=== PATIENT | male | born 1975 | race Caucasian/White ===

== ENCOUNTER 2020-04-23 19:52 | Emergency (ER) | payer OTHER, MEDICAID, SELFPAY ==
[2020-04-23] VITALS (7 sets, daily range): BP systolic 125–158; BP diastolic 78–80; PULSE 89–103; RESP 15–16; TEMP 36.7; O2SAT 91–98; BMI 28.8
--- NOTE | 2020-04-23 20:17 | ED.NAVMDI ---
HPI - Nausea/Vomiting/Diarrhea General Chief complaint: Nausea/Vomiting/Diarrhea Stated complaint: thinks took too many pills - percocet Time Seen by Provider: 04/23/20 20:01 Source: patient Mode of arrival: Wheelchair Limitations: no limitations History of Present Illness HPI Narrative: Patient is a 44-year-old male who 2 days ago underwent a dental procedure where he had 16 if his teeth removed. He is currently on Percocet and has taken 1 tablet every 2 hours. He has not had a bowel movement since the procedure. He states that he is still tolerating oral intake. He is feeling somewhat nauseous. No abdominal pain. Generally just does not feel very good is concerned that maybe he has taken too many of the pain medication. He does not have any nausea medicine at home. Related Data Home Medications Medication Instructions Recorded Confirmed No Known Home Medications 09/20/18 09/20/18 Allergies Allergy/AdvReac Type Severity Reaction Status Date / Time No Known Drug Allergies Allergy Verified 04/23/20 20:03 Review of Systems Constitutional Constitutional: Reports fatigue, Denies fever(s), Denies headache(s) and Reports malaise ENT Ears, Nose, Mouth, and Throat: Denies headache(s) Cardiovascular Cardiovascular: Denies chest pain and Denies dyspnea Respiratory Respiratory: Denies dyspnea Gastrointestinal Gastrointestinal: Denies abdominal pain and Reports nausea Genitourinary Genitourinary: Denies dysuria Genitourinary: Denies dysuria Musculoskeletal Musculoskeletal: Denies arthralgias and Denies myalgias Integumentary/Breasts Skin/Breast: Denies rash Neurologic Neurologic: Denies confusion and Denies headache(s) Psychiatric Psychiatric: Denies confusion Endocrine Endocrine: Reports fatigue Hematologic/Lymphatic On Anticoagulants: No Allergic/Immunologic Allergic/Immunologic: Denies urticaria Patient History Surgical History Hx of sinus surgery Family History Mother Hypertension Diabetes mellitus Stroke Grandmother Heart disease Gallstones Diabetes mellitus Hypertension Father Hypertension Diabetes mellitus Social History household members: family Smoking Status: Current every day smoker alcohol intake: never substance use type: does not use Smoking Status: Current every day smoker alcohol intake frequency: holidays/special occasions only Substance Use Type: does not use Exam Initial Vital Signs Initial Vital Signs: Vital Signs Temperature 98.0 F 04/23/20 19:55 Pulse Rate 103 H 04/23/20 19:55 Respiratory Rate 15 04/23/20 19:55 Blood Pressure 158/78 H 04/23/20 19:55 Pulse Oximetry 97 04/23/20 19:55 Const General: cooperative and comfortable Limitations: mental status not altered HENMT Head: normal to inspection and normocephalic Mouth: other (Extraction sites look well) Resp Effort & Inspection: normal respiratory effort Cardio Rate: tachycardic Rhythm: regular rhythm GI Inspection: non-distended Skin Lesions: no lesions Rashes: no rashes Neuro General: patient alert, patient awake and patient oriented x3 Cognition: normal cognition Speech: speech normal Extrem General: capillary refill normal Psych Appearance: grossly normal and well kempt Course Orders Ordered: Discontinued Medications Al Hydrox/Mg Hydrox/Simethicone 20 ml/ Lidocaine HCl 15 ml 0 ml PO NOW ONE Stop: 04/23/20 22:16 Last Admin: 04/23/20 22:19 Dose: 35 ml Documented by: PEDRO Sodium Chloride (Normal Saline 0.9%) 1,000 mls @ 1,000 mls/hr IV BOLUS ONE Stop: 04/23/20 21:31 Last Infusion: 04/23/20 22:05 Dose: 0 mls/hr Documented by: Admin: 04/23/20 21:00 Dose: 1,000 mls/hr Documented by: PEDRO Ondansetron HCl (Ondansetron 4 Mg/2 Ml Inj) 4 mg IV NOW ONE Stop: 04/23/20 20:33 Last Admin: 04/23/20 21:00 Dose: 4 mg Documented by: PEDRO Ondansetron HCl (Ondansetron 4 Mg Odt Prepack) 1 bottle MISC SEEINSTR ONE Stop: 04/23/20 22:02 Last Admin: 04/23/20 22:09 Dose: 1 bottle Documented by: PEDRO Vital Signs Vital signs: Vital Signs - 8 hr 04/23/20 19:55 04/23/20 20:30 04/23/20 21:00 Temperature 98.0 F Pulse Rate 103 H 95 H 90 Respiratory Rate 15 Blood Pressure 158/78 H Pulse Oximetry 97 98 91 04/23/20 21:30 04/23/20 22:00 04/23/20 22:06 Temperature Pulse Rate 90 89 Respiratory Rate Blood Pressure 125/80 Pulse Oximetry 96 92 96 04/23/20 22:11 Temperature Pulse Rate Respiratory Rate 16 Blood Pressure Pulse Oximetry MDM - Nausea/Vomiting/Diarrhea MDM Narrative Medical decision making narrative: Patient looks well, is presentation is not consistent with a overdose of his opioid pain medication. He is on antibiotics after the dental extractions and this could potentially be causing some of his symptoms. He was given nausea medication. Is able to tolerate oral intake. Was given fluids. We also discussed the use of stool softeners because of the pain medicines he is on. I feel that he could be safely discharged home without further workup in the emergency department he was given return precautions. He expressed understanding and agreement. Discharge Plan Departure Patient Disposition: Home Clinical Impression: Nausea and vomiting Instructions: DI for Nausea -- Adult, DI for Vomiting -- Adult Activity Restrictions/Additional Instructions: Continues to take all of your medications as directed. I do recommend that you start taking a stool softener because of the pain medicine that you are on. Use the nausea medication as needed. Keep all of your scheduled medical appointments. Return to the emergency department for any new or worsening symptoms. Prescriptions: No Action No Known Home Medications RF: 0
[2020-04-23] MEDS: ONDANSETRON 4 MG/2 ML INJ IV (21:00)
[2020-04-23] MEDS: SODIUM CHLORIDE 0.9% 1,000 ML 1000 ML IV (21:00)
[2020-04-23] MEDS: ONDANSETRON 4 MG ODT PREPACK 1 BOTTLE MISC (22:09)
[2020-04-23] MEDS: MAG HYDROX/ALUMINUM/SIMETH SUS 20 ML, LIDOCAINE VISCOUS 2% 15 ML PO (22:19)
== END 2020-04-23 22:30 | disposition home or self-care (01) ==
PROVIDERS: Emergency Provider Emergency Medicine
DX: R11.2 Nausea with vomiting, unspecified (principal)
CPT/HCPCS: 96361; 96374; 99281; 99284; J2405

== ENCOUNTER 2021-03-14 15:16 | Emergency (ER) | payer OTHER, SELFPAY ==
[2021-03-14 15:51] VITALS: BP 128/78; PULSE 91; RESP 18; TEMP 36.6; O2SAT 95; BMI 31.4
--- NOTE | 2021-03-14 15:59 | DI.RAD.S_ITS ---
PROCEDURE: XR ELBOW LT MIN 3V INDICATIONS: LEFT PAIN AFTER A FALL TECHNIQUE: 3 views of the elbow were acquired. COMPARISON: None. FINDINGS: Bones: No fractures or dislocations. No suspicious bony lesions. Soft tissues: No elbow joint effusion. No suspicious soft tissue calcifications. IMPRESSION: Unremarkable left elbow radiographs Approved by: Fan oDan M.D. on 03/14/2021 at 15:29
--- NOTE | 2021-03-14 15:59 | DI.RAD.S_ITS ---
PROCEDURE: XR WRIST LT MIN 3V INDICATIONS: LEFT PAIN AFTER A FALL TECHNIQUE: 3 views of the wrist were acquired. COMPARISON: None. FINDINGS: Bones: No fractures or dislocations. No suspicious bony lesions. Scaphoid view: Not obtained Soft tissues: No suspicious soft tissue calcifications. IMPRESSION: Unremarkable left wrist radiographs Approved by: Fan Doan M.D. on 03/14/2021 at 15:28
--- NOTE | 2021-03-14 16:02 | DI.CT.S_ITS ---
PROCEDURE: CT HEAD/BRAIN WO CON INDICATIONS: Trauma, pain, left hemotympanum TECHNIQUE: Noncontrast 4.5 mm thick angled axial sections acquired from the foramen magnum to the vertex, with coronal and sagittal reformats. For radiation dose reduction, the following was used: automated exposure control, adjustment of mA and/or kV according to patient size. COMPARISON: None. FINDINGS: Image quality: Excellent. CSF spaces: Basal cisterns are patent. No extra-axial fluid collections. Ventricles are normal in size and shape. Brain: No midline shift. No intracranial masses or hemorrhage. Hurtado-white matter interface is normal. Skull and face: Calvarium and visualized facial bones are intact, without suspicious lesions. Sinuses: Visualized sinuses and mastoids are clear. IMPRESSION: Unremarkable CT brain. No intracranial hemorrhage or mass effect. Given the clinical history, consider CT temporal bone to exclude temporal bone fracture. Approved by: Fan Doan M.D. on 03/14/2021 at 16:08
[2021-03-14] MEDS: KETOROLAC 30 MG/ML VIAL IM (18:48)
[2021-03-14] MEDS: TET,DIPH,PERTUSS(ACELL),VAC/PF 0.5 ML SYRINGE IM (18:49)
[2021-03-14 19:07] VITALS: BP 137/79; PULSE 79; RESP 20; O2SAT 98
--- NOTE | 2021-03-14 19:34 | PC.NURSE ---
tender to palpation over radial head of left arm, brusing noted decreased ROM CMS intact
--- NOTE | 2021-03-14 20:06 | ED_ITS ---
HPI - Fall General Chief Complaint: Fall Stated Complaint: left ear is bleeding, arm hurts and head Time Seen by Provider: 03/14/21 20:06 Source: patient Mode of arrival: Ambulatory History of Present Illness HPI Narrative: Patient is a 45-year-old male who presents after fall. He states he was on a ladder putting [place] tree decorations away about 4 ft off the ground when he fell. He did hit left ear on light which was bleeding. No loss of consciousness. He denies any neck pain. Complaining mostly of left sore on own. He started having some left upper quadrant cramping while in the emergency department. No dizziness or lightheadedness. He received a shot of Toradol which has helped him. Related Data Allergies Allergy/AdvReac Type Severity Reaction Status Date / Time No Known Drug Allergies Allergy Verified 03/14/21 15:57 Review of Systems Review of Systems Narrative: GENERAL: Denies chills, fatigue, malaise, fever, sweats, travel HEENT: Denies sinus pain, ear pain, sore throat, difficulty swallowing, neck pain RESPIRATORY: Denies dyspnea, cough, wheezing, hemoptysis, sputum. CARDIOVASCULAR: Denies chest pain, palpitations, orthopnea, edema GASTROINTESTINAL: Denies nausea, vomiting, abdominal pain, diarrhea, constipation, melena. : Denies dysuria, frequency, incontinence, hematuria, urinary retention, flank pain. MUSCULOSKELETAL: See HPI SKIN: No rash, no erythema, no pruritus NEUROLOGIC: See HPI Denies weakness, dizziness, headache, numbness, change in speech, confusion PSYCHIATRIC: No concerning psychosocial issues. 12 point review of systems is negative except for those stated above and HPI Patient History Surgical History Hx of sinus surgery Family History Mother Hypertension Diabetes mellitus Stroke Grandmother Heart disease Gallstones Diabetes mellitus Hypertension Father Hypertension Diabetes mellitus Social History household members: family Smoking Status: Current every day smoker alcohol intake: never substance use type: does not use Smoking Status: Current every day smoker alcohol intake frequency: holidays/special occasions only Substance Use Type: does not use Exam Initial Vital Signs Initial Vital Signs: Vital Signs Temperature 97.8 F 03/14/21 15:51 Pulse Rate 91 H 03/14/21 15:51 Respiratory Rate 18 03/14/21 15:51 Blood Pressure 128/78 03/14/21 15:51 Pulse Oximetry 95 03/14/21 15:51 GENERAL: Well-appearing, well-nourished and in no acute distress. HEENT: Head normocephalic,, EOMI, pupils reactive, face symmetric, moist mucous membranes NECK: Supple, full range of motion, no step-offs, nontender on vertebrae CARDIOVASCULAR: Regular rate and rhythm without murmurs, rubs or gallops. RESPIRATORY: Breath sounds equal bilaterally, no wheezes rales or rhonchi. No crepitations, no subcutaneous air, chest is nontender, no signs of trauma ABDOMEN: Soft, minimally tender in left upper quadrant no guarding no rebound no contusion BACK: Nontender vertebrae, no step-offs, no contusions PELVIS: stable. EXTREMITIES: Normal range of motion, no clubbing or edema. Right upper extremity: Within normal limits Left upper extremity: No shoulder pain no clavicle step-off sensation and deltoid in intact nontender over the olecranon however just inferior in the radius and ulna quite tender with any movement or palpitation. No significant swelling no erythema distal radial pulse intact wrist movement causes pain in that area. 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 Normal gait and speech. SKIN: Left ear superficial lacerations bleeding is easily controlled with pressure no cartilage in both Warm, dry, no petechiae, no rashes or lesions, no contusions or ecchymosis Procedures Orthopedic Splinting/Casting Injury #1: Side: left Upper Extremity Injury Location: forearm Upper Extremity Immobilizer: sling/shoulder immobilizer and posterior splint Post splinting neuro exam: intact Post splinting vascular exam: intact Placed by: Nursing Course Orders Ordered: ED Orders 03/14/21 20:17 CT UE LT wo con Stat Discontinued Medications Diphtheria/Tetanus/Acell Pertussis (Tet,Diph,Pertuss(Acell),Vac/Pf 0.5 Ml Syringe) 0.5 ml IM .ONCE ONE Stop: 03/14/21 16:07 Last Admin: 03/14/21 18:49 Dose: 0.5 ml Documented by: TRA Ketorolac Tromethamine (Ketorolac 30 Mg/Ml Vial) 30 mg IM NOW ONE Stop: 03/14/21 18:44 Last Admin: 03/14/21 18:48 Dose: 30 mg Documented by: TRA Vital Signs Vital signs: Vital Signs - 8 hr 03/14/21 19:07 03/14/21 22:17 Pulse Rate 79 85 Respiratory Rate 20 16 Blood Pressure 137/79 120/70 Pulse Oximetry 98 98 MDM - Fall Imaging Data Extremity x-ray #1: Radiologist's Impression: PROCEDURE:? XR ELBOW LT MIN 3V ? INDICATIONS:? LEFT PAIN AFTER A FALL ? TECHNIQUE:? 3 views of the elbow were acquired.? ? COMPARISON:? None. ? FINDINGS:? ? Bones:? No fractures or dislocations.? No suspicious bony lesions.? ? Soft tissues:? No elbow joint effusion.? No suspicious soft tissue calcificati ons.? ? ? IMPRESSION:? Unremarkable left elbow radiographs ? ? ? Approved by: Fan Doan M.D. on 03/14/2021 at 15:29? Extremity x-ray #2: Radiologist's Impression: PROCEDURE:? XR WRIST LT MIN 3V ? INDICATIONS: LEFT PAIN AFTER A FALL ? TECHNIQUE:? 3 views of the wrist were acquired.? ? COMPARISON:? None. ? FINDINGS:? ? Bones:? No fractures or dislocations.? No suspicious bony lesions.? ? Scaphoid view:? Not obtained ? Soft tissues:? No suspicious soft tissue calcifications.? ? IMPRESSION:? Unremarkable left wrist radiographs ? ? ? Approved by: Fan Doan M.D. on 03/14/2021 at 15:28? CT scan - head: Radiologist's Impression: PROCEDURE:? CT HEAD/BRAIN WO CON ? INDICATIONS:? Trauma, pain, left hemotympanum ? TECHNIQUE:? Noncontrast 4.5 mm thick angled axial sections acquired from the foramen magnum to the vertex, with coronal and sagittal reformats.? For radiation dose reduction, the following was used:? automated exposure control, adjustment of mA and/or kV according to patient size.? ? COMPARISON:? None. ? FINDINGS:? Image quality:? Excellent.? ? CSF spaces:? Basal cisterns are patent.? No extra-axial fluid collections.? Ventricles are normal in size and shape.? ? Brain:? No midline shift.? No intracranial masses or hemorrhage.? Hurtado-white mat ter interface is normal.? ? Skull and face:? Calvarium and visualized facial bones are intact, without suspicious lesions.? ? Sinuses:? Visualized sinuses and mastoids are clear.? ? IMPRESSION:? Unremarkable CT brain.? No intracranial hemorrhage or mass effect.? Given the clinical history, consider CT temporal bone to exclude temporal bone fracture. ? ? ? Approved by: Fan Doan M.D. on 03/14/2021 at 16:08? CT UE: Radiologist's Impression: PROCEDURE:? CT UE LT WO CON ? INDICATIONS:? significant pain elbow/forearm with neg x ray ? TECHNIQUE:? Noncontrast 1-1.5 mm axial sections were acquired through the elbow joint, with coronal and sagittal reformats.? ? COMPARISON:? [facility], CR, XR ELBOW LT MIN 3V, 03/14/2021, 15:52.? [facility], CR, XR WRIST LT MIN 3V, 03/14/2021, 15:52. ? FINDINGS:? Image quality:? Excellent.? ? Bones:? Nondisplaced anterior radial head fracture, best seen on parasagittal re-formation imaging series 5, image 84. A perceptible anterior joint effusion is not associated.? ? Soft tissues:? No swelling seen. ? IMPRESSION:? Anterior nondisplaced inferior radial head margin fracture, not visible on prior plain film imaging due to slight differences in angulation. ? ? Dictated by: Harish Willis M.D. on 03/14/2021 at 21:05 ? [facility] [place] Narrative Medical decision making narrative: Patient is having some left upper quadrant pain. My bedside ultrasound got a very clear picture no free fluid fast exam is negative. Pain in abdomen actually improved with repositioning. Left arm is extremly tender in his forearm x-ray is negative have reviewed x-ray myself I do not see any obvious fracture however sent for CT. It does confirm a nondisplaced radial head fracture. He is placed in splint and sling. He is offered stronger pain medication however would prefer Tylenol and ibuprofen only. Discharge Plan Departure Patient Disposition: Home Clinical Impression: Closed fracture of radial head Instructions: Elbow Fracture Activity Restrictions/Additional Instructions: *You have been diagnosed with left radial head fracture *What to do: Keep arm in splint at all times. Bag well showering and bathing. Use sling while active may need to sleep in sling as well. May ice 20-30 minutes at a time *Continue to take medications as directed Tylenol 1000 mg every 6 hours if needed for [id number] pain Ibuprofen 600 mg every 6 hours if need from a moderate *Follow up with your primary care provider in 2-3 days or call [phone] Call Orthopedics Tuesday to schedule follow-up appointment. *Return to ER if you should have increasing pain swelling confusion or any new, worsening or concerning symptoms Referrals: [facility] [Provider Group] Miscellaneous,Doctor, MD [Primary Care Provider] - Stand Alone Forms: Work Release Note
--- NOTE | 2021-03-14 20:17 | DI.CT.S_ITS ---
PROCEDURE: CT UE LT WO CON INDICATIONS: significant pain elbow/forearm with neg x ray TECHNIQUE: Noncontrast 1-1.5 mm axial sections were acquired through the elbow joint, with coronal and sagittal reformats. COMPARISON: [facility], CR, XR ELBOW LT MIN 3V, 03/14/2021, 15:52. [facility], CR, XR WRIST LT MIN 3V, 03/14/2021, 15:52. FINDINGS: Image quality: Excellent. Bones: Nondisplaced anterior radial head fracture, best seen on parasagittal re-formation imaging series 5, image 84. A perceptible anterior joint effusion is not associated. Soft tissues: No swelling seen. IMPRESSION: Anterior nondisplaced inferior radial head margin fracture, not visible on prior plain film imaging due to slight differences in angulation. Dictated by: Harish Willis M.D. on 03/14/2021 at 21:05 Approved by: Harish Willis M.D. on 03/14/2021 at 21:31
[2021-03-14 22:17] VITALS: BP 120/70; PULSE 85; RESP 16; O2SAT 98
== END 2021-03-14 22:19 | disposition home or self-care (01) ==
PROVIDERS: Emergency Provider Emergency Medicine
DX: S52.125A Nondisplaced fracture of head of left radius, initial encounter for closed fracture (principal); S01.312A Laceration without foreign body of left ear, initial encounter; W11.XXXA Fall on and from ladder, initial encounter; Y99.0 Civilian activity done for income or pay; Z23 Encounter for immunization
CPT/HCPCS: 29105; 70450; 73080; 73110; 73200; 90471; 96372; 99284; 90715; J1885

== ENCOUNTER 2021-03-16 15:28 | Emergency (ER) | payer OTHER, SELFPAY | END 2021-03-16 16:13 | disposition left against medical advice (07) | PROVIDERS: Emergency Provider Emergency Medicine | DX: Z53.21 Procedure and treatment not carried out due to patient leaving prior to being seen by health care provider (principal) ==

== ENCOUNTER 2021-03-20 10:26 | Emergency (ER) | payer OTHER, SELFPAY ==
[2021-03-20 10:28] VITALS: BP 165/89; PULSE 106; RESP 16; TEMP 36.3; O2SAT 100; BMI 30.7
--- NOTE | 2021-03-20 10:38 | PC.NURSE ---
Dewey wrap removed from pt,instantly he felt better with less pain. Splint reapplied,pt still having relief.
--- NOTE | 2021-03-20 11:39 | ED_ITS ---
HPI - Extremity Injury (Upper) General Chief Complaint: Extremity Injury, Upper Stated Complaint: Splint is causing pain to hand Time Seen by Provider: 03/20/21 11:21 Source: patient Mode of arrival: Ambulatory Limitations: no limitations History of Present Illness HPI narrative: The patient works at a local [employer]. He was initially seen last week. 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 He slipped and fell, sustaining multiple injuries. He has a left radial head fracture confirmed by CT. He is in a left long-arm splint. He is here due to left arm pain at the elbow and at the wrist with the splint in place. He has a burning sensation extending to the left thumb. He has diabetes. There is a degree of tingling in his fingers as a baseline. He has no head, neck, or torso pain he has no complaints of other extremity discomfort. He is right-hand dominant. He has an orthopedic evaluation in 3 days. Related Data Allergies Allergy/AdvReac Type Severity Reaction Status Date / Time No Known Drug Allergies Allergy Verified 03/20/21 10:28 Review of Systems Review of Systems Narrative: ROS as noted HPI. Otherwise negative. Patient History Medical History (Updated 03/20/21 @ 12:18 by Christopher White MD) Closed fracture of radial head Diabetes Surgical History Hx of sinus surgery Family History Mother Hypertension Diabetes mellitus Stroke Grandmother Heart disease Gallstones Diabetes mellitus Hypertension Father Hypertension Diabetes mellitus Social History household members: family Smoking Status: Current every day smoker alcohol intake: never substance use type: does not use Smoking Status: Current every day smoker alcohol intake frequency: holidays/special occasions only Substance Use Type: does not use Exam Initial Vital Signs Initial Vital Signs: Vital Signs Temperature 97.4 F L 03/20/21 10:28 Pulse Rate 106 H 03/20/21 10:28 Respiratory Rate 16 03/20/21 10:28 Blood Pressure 165/89 H 03/20/21 10:28 Pulse Oximetry 100 03/20/21 10:28 Const General: cooperative, comfortable, well developed and well groomed Skin Lesions: no lesions Rashes: no rashes Neuro General: patient alert, patient awake, patient oriented x3, no focal motor deficits and other (Normal light touch exam of the left hand.) Extrem Other: Tenderness in the left elbow, decreased range of motion due to pain. Limited extension. No obvious deformities. Left arm, wrist and hand are atraumatic. Left radial pulse is normal. Psych Mental Status: mental status grossly normal Procedures Orthopedic Splinting/Casting Injury #1: Side: left Upper Extremity Immobilizer: posterior splint Post splinting neuro exam: intact Post splinting vascular exam: intact Placed by: Nursing Additional Comments: The patient was placed in a left long arm ulnar gutter splint for from [facility] by his nurse. The discomfort has resolved. He was placed in a sling by his nurse. His left hand is neurovascularly intact. He has improved. Course Vital Signs Vital signs: Vital Signs - 8 hr 03/20/21 10:28 Temperature 97.4 F L Pulse Rate 106 H Respiratory Rate 16 Blood Pressure 165/89 H Pulse Oximetry 100 Discharge Plan Departure Patient Disposition: Home Clinical Impression: Closed fracture of head of left radius Instructions: DI for Distal Radius Fracture Activity Restrictions/Additional Instructions: Keep the splint in place. If you developed tingling, or burning pain in your left hand loosen the Dewey wrap. Follow-up with orthopedics next week as planned, return here as needed. Referrals: Miscellaneous,DoctorMD [Primary Care Provider] -
== END 2021-03-20 12:19 | disposition home or self-care (01) ==
PROVIDERS: Emergency Provider Emergency Medicine
DX: S52.122A Displaced fracture of head of left radius, initial encounter for closed fracture (principal); W01.0XXA Fall on same level from slipping, tripping and stumbling without subsequent striking against object, initial encounter
CPT/HCPCS: 99281; 99282

== ENCOUNTER → 2021-04-14 15:19 | Outpatient (CLI) | payer OTHER, MEDICAID, SELFPAY ==
--- NOTE | 2021-04-16 13:24 | DIAB.INIT ---
Initial Diabetes Education Assessment Name: Vitor Garrett Date: 04/14/21 Time: 340-445p Dx: Type II Diabetes Provider: Estee Preferred Learning Style: Listening, Watching, Reading, Doing Vitor presents today for initial visit regarding T2DM. States he has made significant changes to his diet with his 's assistance. States he has had DM for about one year. Endorses worsening neuropathy over the last few months. Seems to feel that he should hold his provider accountable for his diabetes management. Reports DM is overwhelming due to increasing blood sugars, feeling grumpy, and feeling like nothing is being done about it. Reviewing referral, hgA1c has improved from 10.7% to 9% to 8.8%. Endorses eliminating sugar from his diet. Eating cauliflower rice instead of regular. Limiting potatoes. Overall, diet recall indicates low carb diet, likely low fiber, seems higher saturated fat with meat intake. Poor dentition with all teeth pulled one year ago. Has dentures, due for fitting. Only wears them when he eats. Weight gain over the last few years. Back injury from work resulted in wt gain to 345#. Reports UBW as 180# but current reported wt is 227#. Has lost 125# intentionally this year. Would like to be <200# again. Back to work after 13 yr hiatus. Has not received flu shot Working on reducing cigarette smoking. Down to <1 pack per day, down from 2-3 packs. Feels as though this is less to do with nicotine now and more to do with habit. Feels confident that he will be able to quit. Reports financial concerns. Seems very motivated to mange DM. Physical Activity: Walking 1mi BID (13-14 min mi). In the summer time he weight lifts. Self-Monitoring Blood Glucose: Stopped checking his BG because he feels it is depressing to always see they are elevated. Endorses 200-220 mg/dL for FBG when he was checking. Diabetes Medications: Glipizide 5mg BID Metformin 1000 mg BID Pertinent Labs: 01/2021 HgA1c: 8.8% Cholesterol: 234H HDL: 34 L LDL: 128 H T H Past Medical History: (Last Updated 03/20/21 @ 12:18 by Christopher White MD) Closed fracture of radial head Diabetes Hx of sinus surgery Intervention: This participant was very receptive. Provided appropriate educational handouts. Discussed the following topics: Completed intake assessment. Discussed barriers to care. Pathophysiology of type 2 diabetes HgA1c progress Importance of self-monitoring, how often, and when to check. Suggested checking at different times to evaluate meals Plate Method, impact of macronutrients on blood sugar General recommended servings for carbohydrates at meals and snacks Role of physical activity Created SMART goals for patient self-care and success. Goals: Check BG 1-2x per day: FBG and 1-2 hour pc Increase walks to 2 mi Follow-up: YONATHAN SUN follow-up in 3-4 weeks This DINO agrees with provider that he may be a good candidate for additional DM medication. Will continue to work on lifestyle. He is very open to increasing activity. Will focus more on nutrition next visit. Deisy Rocha RDN, [facility] Certified Diabetes Care and Advisory Internship P: [phone] Thank you for this referral
== END ==
PROVIDERS: PCP Family Medicine; Referring Provider Family Medicine; Visit Provider Family Medicine
DX: E11.9 Type 2 diabetes mellitus without complications (principal)
CPT/HCPCS: G0108

== ENCOUNTER → 2021-05-12 15:27 | Outpatient (CLI) | payer OTHER, MEDICAID, SELFPAY ==
--- NOTE | 2021-05-20 15:24 | DIAB.FU ---
Follow-up Diabetes Education Assessment Name: Vitor Garrett Date: 05/12/21 Time: 335-430p Dx: Type II Diabetes Vitor presents for DM follow-up. States he has seen PCP since our last visit. Has started Victoza and plans to titrate to 1.2mg today. Denies any SE. Reports increased energy, likely from improved BG. Also reported a decrease in appetite, likely r/t Victoza. States he enjoys baking. Looking for some variety in recipes. Diet recall: 6-8a: eggs, sausage, little potatoe and veggies 11-12: veggies, 1c rice, protein 530-730p: salad with egg and fish or chx Physical Activity: No increase to walking. Would like to discuss with PT, which this RD agrees. Continues walking 1mi BID. Self-Monitoring Blood Glucose: FBG cont above target but much improved from the previous >200 reported. Hopes it cont to improve with titration of Victoza. Most pc meal numbers elevated. Likes homemade mocha and unsure how to change this to reduce CHO. Date Pre Post Pre Post Pre Post HS 05/06 184 282 05/07 260 239 05/08 185 220 05/09 171 268 mocha 05/10 167 05/11 191 152 05/12 142 188 mcmuffin 133 Diabetes Medications: Glipizide 5mg BID Metformin 1000 mg BID Victoza 0.6mg daily with plan to inc to 1.2mg today Pertinent Labs: 01/2021 HgA1c: 8.8% Cholesterol: 234H HDL: 34 L LDL: 128 H T H Past Medical History: (Last Updated 03/20/21 @ 12:18 by Christopher White MD) Closed fracture of radial head Diabetes Hx of sinus surgery Intervention: This participant was very receptive. Provided appropriate educational handouts. Discussed the following topics: Recent blood sugar results and trends Medication management Review of general nutrition recommendations and current intake Brainstormed snack ideas Provided ADA [employer] website Physical activity plan Created SMART goals for patient self-care and success. Goals: Check BG 1-2x per day: FBG and 1-2 hour pc - met Increase walks to 2 mi- on hold Try monkfruit mocha- new Try moving dinner to 530p or add afternoon snack for better meal timing-new Snack ideas: fruit with nuts or apple and PB Follow-up: YONATHAN SUN follow-up in 3-4 weeks Deisy Rocha RDN, [facility] Certified Diabetes Care and Shoe Repairer P: [phone] Thank you for this referral
== END ==
PROVIDERS: Family Provider Family Medicine; PCP Family Medicine; Referring Provider Family Medicine; Visit Provider Family Medicine
DX: E11.9 Type 2 diabetes mellitus without complications (principal); Z71.3 Dietary counseling and surveillance; Z79.84 Long term (current) use of oral hypoglycemic drugs
CPT/HCPCS: G0108

== ENCOUNTER 2021-05-21 07:30 | Outpatient (RCR) | payer OTHER, MEDICAID, SELFPAY ==
--- NOTE | 2021-05-15 15:49 | PT.OIE ---
Current Diagnoses Pain in right hip (05/15/21) Past Medical History (Last Updated 03/20/21 @ 12:18 by Christopher White MD) Closed fracture of radial head Diabetes Hx of sinus surgery Past Surgical History (Last Reviewed 03/20/21 @ 12:18 by Christopher White MD) Hx of sinus surgery Visit Care Team Role Provider Type Johnny Fontanez MD Attending Provider Physician Family Provider Primary Care Provider Referring Provider Specialty: [facility] Address: [facility] [place], [facility] Email: [email or web address] Physical Therapy Initial Evaluation PT-OP-A Visit Information Start: 05/14/21 16:05 Freq: Status: Active Protocol: Document 05/15/21 07:30 AMB (Rec: 05/15/21 13:41 AMB [id number]) Out-Patient Physical Therapy Visit Information Visit Information Visit Type Initial Evaluation Visit Start Time 07:30 Visit Stop Time 08:15 Total Visit Minutes 45 Visit Number 1 PT-OP-B Current Condition Start: 05/14/21 16:05 Freq: Status: Active Protocol: Document 05/15/21 07:31 AMB (Rec: 05/15/21 08:23 AMB [id number]) Current Condition History of Current Condition Onset Date 5-6 months ago Current Complaints R hip History of Current Condition Pain with crossing leg over. No pain at rest, walks 1-2 miles a day. Bending is difficult due to pre-existing back pain. Back and neck are both painful chronically. Did have a fall in February from a 4 foot height, not sure if pain was as bad then or worse or better. Has seen chiropractor every other week for chronic back issues. Reports numbness on the left leg and bilateral feet, thinks because of back and diabetes, that was going on before hip. Biggest issue with the hip is getting the socks on and off. Prior Functional Status Baseline Function- ADL's Independent Baseline Function- Mobility Independent Current Functional Impairments (Reported) Functional Limitations- ADL's Donning/doffing socks Personal Factors Other Personal Factors That May Effect Chronic low back and neck pain Therapy/Recovery with resultant numbness in bilateral legs/feet, DMII PT-OP-C Subjective Start: 05/14/21 16:05 Freq: Status: Active Protocol: Document 05/15/21 07:30 AMB (Rec: 05/15/21 13:41 AMB [id number]) Patient Questionnaires Lower Extremity Functional Scale LEFS Score 38 LEFS Impairment 40 to 59% Impaired (Score 32- 47) OP-PT Pain Assessment Comments Pain Comments 6/10 at worst when crossing leg, 0/10 at rest PT-OP-F Manual Assessment Start: 05/14/21 16:05 Freq: Status: Active Protocol: Document 05/15/21 07:30 AMB (Rec: 05/15/21 13:41 AMB [id number]) Manual Assessments Soft Tissue Assessment Soft Tissue Mobility Assessment Denies pain at psoas, IT Band, throughout glutes PT-OP-G Mobility & Gait Start: 05/14/21 16:05 Freq: Status: Active Protocol: Document 05/15/21 07:30 AMB (Rec: 05/15/21 13:41 AMB [id number]) OP Gait Assessment Comments Gait Comments reduced trunk rotation throughout gait cycle PT-OP-J Posture/Palpation/Skin Start: 05/14/21 16:05 Freq: Status: Active Protocol: Document 05/15/21 07:30 AMB (Rec: 05/15/21 13:41 AMB [id number]) Posture Evaluation Comments Posture Comments flat lumbar spine, tends to sit off of right hip, more weighton the left PT-OP-K Range of Motion Start: 05/14/21 16:05 Freq: Status: Active Protocol: Document 05/15/21 07:30 AMB (Rec: 05/15/21 13:41 AMB [id number]) Hip Goniometric Range of Motion Hip Left Passive Testing Position Supine Flexion w/Knee Flexed 105 Straight Leg Raise 80 Internal Rotation 25 External Rotation 53 Right Passive Testing Position Supine Flexion w/Knee Flexed 107 Straight Leg Raise 75 Internal Rotation 25 External Rotation 26 PT-OP-L Special Tests Start: 05/14/21 16:05 Freq: Status: Active Protocol: Document 05/15/21 07:30 AMB (Rec: 05/15/21 13:41 AMB [id number]) Special Tests Hip Special Tests TASHA Test Results + PT-OP-M Strength Start: 05/14/21 16:05 Freq: Status: Active Protocol: Document 05/15/21 07:30 AMB (Rec: 05/15/21 13:41 AMB [id number]) Hip Strength Hip Manual Muscle Testing Right Flexion (L2) 3+ Fair+ Extension (S1) 4 Good Abduction 3+ Fair+ External Rotation 3+ Fair+ Left Flexion (L2) 4+ Good+ Extension (S1) 5 Normal Abduction 4+ Good+ External Rotation 5 Normal Knee Strength Knee Manual Muscle Testing Right Flexion (S2) 4+ Good+ Extension (L3) 4 Good Left Flexion (S2) 5 Normal Extension (L3) 5 Normal Ankle/Foot Strength Ankle and Foot Manual Muscle Testing Right Dorsiflexion (L4) 4+ Good+ Plantarflexion (S1) 5 Normal Left Dorsiflexion (L4) 5 Normal Plantarflexion (S1) 5 Normal PT-OP-Q Treatments Start: 05/14/21 16:05 Freq: Status: Active Protocol: Document 05/15/21 07:30 AMB (Rec: 05/15/21 13:41 AMB [id number]) Therapeutic Exercises Supine Exercises LTR Side bilateral Reps/Minutes 10 Comments cued slow small ROM Sidelying Exercises 1 Sidelying Exercise Name clamshell Side right Reps/Minutes 5 PT-OP-T Assessment and Plan Start: 05/14/21 16:05 Freq: Status: Active Protocol: Document 05/15/21 07:30 AMB (Rec: 05/15/21 15:47 AMB [id number]) Physical Therapy Assessment Rehab Potential Rehabilitation Potential Good Evaluation Complexity Number of Personal Factors/Comorbidities 1-2 Number of Body Systems Impaired 4 or More Clinical Presentation at Evaluation Stable Impairments Impairments Pain,ROM,Sensation,Strength Goals Two Impairment ROM Short Term Goal (STG) Vitor will improve his right hip external rotation to 45 degrees. STG Duration 4 weeks Chemist Helper Goal (LTG) Vitor will be able to cross his right leg over his left with 4/10 pain or less. LTG Duration 8 weeks One Impairment ADLs Short Term Goal (STG) Vitor will stand for 1 hour with hip pain of 4/10 or less. STG Duration 4 weeks Senior Care Goal (LTG) Vitor will be able to don and doff his socks without an increase in hip pain. LTG Duration 8 weeks Assessment Summary Assessment Vitor attends physical therapy with painful hip external rotation. He has both weakness and stiffness worst into external rotation, but weakness into flexion and abduction as well. This mostly affects his ability to don/doff socks. Overall his mobility is limited due to a prior onset chronic back pain which will impact his hip rehab. He will benefit from physical therapy for instruction in strengthening and mobilizing his right hip. Physical Therapy Plan Frequency and Duration Frequency of Treatment 2x/Week Duration of Treatment 8 weeks Plan of Care Start Date 05/15/21 Plan of Care End Date 07/10/21 Therapeutic Interventions Therapeutic Interventions Gait Training,Home Exercise Program,Joint Mobilizations, Manual Therapy,Neuromuscular Re-education,Self-Care/Home Management,Therapeutic Activities,Therapeutic Exercises Next Visit Focus/Plan Next Note Type Treatment Note Next Visit Plan Reassess LTR and claadryanl HEP , can pt tolerate partial piriformis stretch?
--- NOTE | 2021-05-15 15:49 | PT.OPPOC ---
Physical, Occupational & Speech Therapy At [facility] Current Diagnoses Pain in right hip (05/15/21) Visit Care Team Role Provider Type Johnny Fontanez MD Attending Provider Physician Family Provider Primary Care Provider Referring Provider Specialty: Family Practice [place]: [place], [address] Email: [email or web address] Plan Of Care PT-OP-T Assessment and Plan Start: 05/14/21 16:05 Freq: Status: Active Protocol: Document 05/15/21 07:30 AMB (Rec: 05/15/21 15:47 AMB [id number]) Physical Therapy Assessment Rehab Potential Rehabilitation Potential Good Evaluation Complexity Number of Personal Factors/Comorbidities 1-2 Number of Body Systems Impaired 4 or More Clinical Presentation at Evaluation Stable Impairments Impairments Pain,ROM,Sensation,Strength Goals Two Impairment ROM Short Term Goal (STG) Vitor will improve his right hip external rotation to 45 degrees. STG Duration 4 weeks Soda Dispenser Goal (LTG) Vitor will be able to cross his right leg over his left with 4/10 pain or less. LTG Duration 8 weeks One Impairment ADLs Short Term Goal (STG) Vitor will stand for 1 hour with hip pain of 4/10 or less. STG Duration 4 weeks Soda Dispenser Goal (LTG) Vitor will be able to don and doff his socks without an increase in hip pain. LTG Duration 8 weeks Assessment Summary Assessment Vitor attends physical therapy with painful hip external rotation. He has both weakness and stiffness worst into external rotation, but weakness into flexion and abduction as well. This mostly affects his ability to don/doff socks. Overall his mobility is limited due to a prior onset chronic back pain which will impact his hip rehab. He will benefit from physical therapy for instruction in strengthening and mobilizing his right hip. Physical Therapy Plan Frequency and Duration Frequency of Treatment 2x/Week Duration of Treatment 8 weeks Plan of Care Start Date 05/15/21 Plan of Care End Date 07/10/21 Therapeutic Interventions Therapeutic Interventions Gait Training,Home Exercise Program,Joint Mobilizations, Manual Therapy,Neuromuscular Re-education,Self-Care/Home Management,Therapeutic Activities,Therapeutic Exercises Next Visit Focus/Plan Next Note Type Treatment Note Next Visit Plan Reassess LTR and clamshell HEP , can pt tolerate partial piriformis stretch? Plan of Care Dates Plan of Care Start Date 05/15/21 Plan of Care End Date 07/10/21 Electronically Signed by: Rosa Alonzo, MELISSA 05/15/21 5509 Please Sign and Return: I have reviewed this Plan of Care and certify that the skilled therapy services above are required to meet the patient?s needs. Physician Signature Date Printed Name and Credentials Clinical Instructor Signature Printed Name and Credentials
--- NOTE | 2021-05-21 08:48 | PT.OTN ---
Current Diagnoses Pain in right hip (05/21/21) Physical Therapy Treatment Note PT-OP-A Visit Information Start: 05/14/21 16:05 Freq: Status: Active Protocol: Document 05/21/21 07:30 AMB (Rec: 05/21/21 08:48 AMB [id number]) Out-Patient Physical Therapy Visit Information Visit Information Visit Type Treatment Note Visit Start Time 07:30 Visit Stop Time 08:14 Total Visit Minutes 44 Visit Number 2 PT-OP-B Current Condition Start: 05/14/21 16:05 Freq: Status: Active Protocol: Document 05/15/21 07:31 AMB (Rec: 05/15/21 08:23 AMB [id number]) Current Condition History of Current Condition Onset Date 5-6 months ago Current Complaints R hip History of Current Condition Pain with crossing leg over. No pain at rest, walks 1-2 miles a day. Bending is difficult due to pre-existing back pain. Back and neck are both painful chronically. Did have a fall in February from a 4 foot height, not sure if pain was as bad then or worse or better. Has seen chiropractor every other week for chronic back issues. Reports numbness on the left leg and bilateral feet, thinks because of back and diabetes, that was going on before hip. Biggest issue with the hip is getting the socks on and off. Prior Functional Status Baseline Function- ADL's Independent Baseline Function- Mobility Independent Current Functional Impairments (Reported) Functional Limitations- ADL's Donning/doffing socks Personal Factors Other Personal Factors That May Effect Chronic low back and neck pain Therapy/Recovery with resultant numbness in bilateral legs/feet, DMII PT-OP-C Subjective Start: 05/14/21 16:05 Freq: Status: Active Protocol: Document 05/21/21 07:30 AMB (Rec: 05/21/21 08:48 AMB [id number]) OP-PT Subjective Patient Comments Patient Comments Vitor reports he has been doing his exercises 3x/day, they are a bit sore. PT-OP-F Manual Assessment Start: 05/14/21 16:05 Freq: Status: Active Protocol: Document 05/15/21 07:30 AMB (Rec: 05/15/21 13:41 AMB [id number]) Manual Assessments Soft Tissue Assessment Soft Tissue Mobility Assessment Denies pain at psoas, IT Band, throughout glutes PT-OP-G Mobility & Gait Start: 05/14/21 16:05 Freq: Status: Active Protocol: Document 05/15/21 07:30 AMB (Rec: 05/15/21 13:41 AMB [id number]) OP Gait Assessment Comments Gait Comments reduced trunk rotation throughout gait cycle PT-OP-J Posture/Palpation/Skin Start: 05/14/21 16:05 Freq: Status: Active Protocol: Document 05/15/21 07:30 AMB (Rec: 05/15/21 13:41 AMB [id number]) Posture Evaluation Comments Posture Comments flat lumbar spine, tends to sit off of right hip, more weighton the left PT-OP-K Range of Motion Start: 05/14/21 16:05 Freq: Status: Active Protocol: Document 05/15/21 07:30 AMB (Rec: 05/15/21 13:41 AMB [id number]) Hip Goniometric Range of Motion Hip Left Passive Testing Position Supine Flexion w/Knee Flexed 105 Straight Leg Raise 80 Internal Rotation 25 External Rotation 53 Right Passive Testing Position Supine Flexion w/Knee Flexed 107 Straight Leg Raise 75 Internal Rotation 25 External Rotation 26 PT-OP-L Special Tests Start: 05/14/21 16:05 Freq: Status: Active Protocol: Document 05/15/21 07:30 AMB (Rec: 05/15/21 13:41 AMB [id number]) Special Tests Hip Special Tests TASHA Test Results + PT-OP-M Strength Start: 05/14/21 16:05 Freq: Status: Active Protocol: Document 05/15/21 07:30 AMB (Rec: 05/15/21 13:41 AMB [id number]) Hip Strength Hip Manual Muscle Testing Right Flexion (L2) 3+ Fair+ Extension (S1) 4 Good Abduction 3+ Fair+ External Rotation 3+ Fair+ Left Flexion (L2) 4+ Good+ Extension (S1) 5 Normal Abduction 4+ Good+ External Rotation 5 Normal Knee Strength Knee Manual Muscle Testing Right Flexion (S2) 4+ Good+ Extension (L3) 4 Good Left Flexion (S2) 5 Normal Extension (L3) 5 Normal Ankle/Foot Strength Ankle and Foot Manual Muscle Testing Right Dorsiflexion (L4) 4+ Good+ Plantarflexion (S1) 5 Normal Left Dorsiflexion (L4) 5 Normal Plantarflexion (S1) 5 Normal PT-OP-Q Treatments Start: 05/14/21 16:05 Freq: Status: Active Protocol: Document 05/21/21 07:30 AMB (Rec: 05/21/21 08:48 AMB [id number]) Cardio Equipment Recumbent Elliptical (Biodex) Duration (Minutes) 5 Resistance 4 Therapeutic Exercises Supine Exercises supine ER Equipment Used #2 t band Reps/Minutes 2x10 LTR Side bilateral Reps/Minutes 10 Comments cued slow small ROM Sidelying Exercises 1 Sidelying Exercise Name clamshell Side right Reps/Minutes 2x10 Other Exercises quadruped leg extension Reps/Minutes 10 Comments pt felt increased back pain Manual Therapy Treatment Soft Tissue Mobilization R IT band Mobilization Type Instrument Assisted Comments rolling pin Manual Traction long axis Details right PT-OP-T Assessment and Plan Start: 05/14/21 16:05 Freq: Status: Active Protocol: Document 05/21/21 07:30 AMB (Rec: 05/21/21 08:48 AMB [id number]) Physical Therapy Assessment Goals Two Impairment ROM Short Term Goal (STG) Vitor will improve his right hip external rotation to 45 degrees. STG Duration 4 weeks Half-Way Goal (LTG) Vitor will be able to cross his right leg over his left with 4/10 pain or less. LTG Duration 8 weeks One Impairment ADLs Short Term Goal (STG) Vitor will stand for 1 hour with hip pain of 4/10 or less. STG Duration 4 weeks Half-Way Goal (LTG) Vitor will be able to don and doff his socks without an increase in hip pain. LTG Duration 8 weeks Assessment Summary Assessment Vitor had back pain with quadruped exercises, and reports burning with IT band rolling. Encouraged to not force through a large range of motion early in the day, and progressivley work into more range as hip loosens up. Physical Therapy Plan Next Visit Focus/Plan Next Note Type Treatment Note Next Visit Plan Reassess LTR and clamshell HEP , can pt tolerate partial piriformis stretch?
--- NOTE | 2021-06-10 10:52 | PT.OPDS ---
Current Diagnoses Pain in right hip (05/21/21) Visit Care Team Role Provider Type Johnny Fontanez MD Attending Provider Physician Family Provider Primary Care Provider Referring Provider Specialty: Family Practice Address: [address], [place], [address] Email: [email or web address] Visit Number Visit Number 2 Discharge Summary PT-OP-B Current Condition Start: 05/14/21 16:05 Freq: Status: Active Protocol: Document 05/15/21 07:31 AMB (Rec: 05/15/21 08:23 AMB [id number]) Current Condition History of Current Condition Onset Date 5-6 months ago Current Complaints R hip History of Current Condition Pain with crossing leg over. No pain at rest, walks 1-2 miles a day. Bending is difficult due to pre-existing back pain. Back and neck are both painful chronically. Did have a fall in February from a 4 foot height, not sure if pain was as bad then or worse or better. Has seen chiropractor every other week for chronic back issues. Reports numbness on the left leg and bilateral feet, thinks because of back and diabetes, that was going on before hip. Biggest issue with the hip is getting the socks on and off. Prior Functional Status Baseline Function- ADL's Independent Baseline Function- Mobility Independent Current Functional Impairments (Reported) Functional Limitations- ADL's Donning/doffing socks Personal Factors Other Personal Factors That May Effect Chronic low back and neck pain Therapy/Recovery with resultant numbness in bilateral legs/feet, DMII PT-OP-C Subjective Start: 05/14/21 16:05 Freq: Status: Active Protocol: Document 05/21/21 07:30 AMB (Rec: 05/21/21 08:48 AMB [id number]) OP-PT Subjective Patient Comments Patient Comments Vitor reports he has been doing his exercises 3x/day, they are a bit sore. PT-OP-F Manual Assessment Start: 05/14/21 16:05 Freq: Status: Active Protocol: Document 05/15/21 07:30 AMB (Rec: 05/15/21 13:41 AMB [id number]) Manual Assessments Soft Tissue Assessment Soft Tissue Mobility Assessment Denies pain at psoas, IT Band, throughout glutes PT-OP-G Mobility & Gait Start: 05/14/21 16:05 Freq: Status: Active Protocol: Document 05/15/21 07:30 AMB (Rec: 05/15/21 13:41 AMB [id number]) OP Gait Assessment Comments Gait Comments reduced trunk rotation throughout gait cycle PT-OP-J Posture/Palpation/Skin Start: 05/14/21 16:05 Freq: Status: Active Protocol: Document 05/15/21 07:30 AMB (Rec: 05/15/21 13:41 AMB [id number]) Posture Evaluation Comments Posture Comments flat lumbar spine, tends to sit off of right hip, more weighton the left PT-OP-K Range of Motion Start: 05/14/21 16:05 Freq: Status: Active Protocol: Document 05/15/21 07:30 AMB (Rec: 05/15/21 13:41 AMB [id number]) Hip Goniometric Range of Motion Hip Left Passive Testing Position Supine Flexion w/Knee Flexed 105 Straight Leg Raise 80 Internal Rotation 25 External Rotation 53 Right Passive Testing Position Supine Flexion w/Knee Flexed 107 Straight Leg Raise 75 Internal Rotation 25 External Rotation 26 PT-OP-L Special Tests Start: 05/14/21 16:05 Freq: Status: Active Protocol: Document 05/15/21 07:30 AMB (Rec: 05/15/21 13:41 AMB [id number]) Special Tests Hip Special Tests TASHA Test Results + PT-OP-M Strength Start: 05/14/21 16:05 Freq: Status: Active Protocol: Document 05/15/21 07:30 AMB (Rec: 05/15/21 13:41 AMB [id number]) Hip Strength Hip Manual Muscle Testing Right Flexion (L2) 3+ Fair+ Extension (S1) 4 Good Abduction 3+ Fair+ External Rotation 3+ Fair+ Left Flexion (L2) 4+ Good+ Extension (S1) 5 Normal Abduction 4+ Good+ External Rotation 5 Normal Knee Strength Knee Manual Muscle Testing Right Flexion (S2) 4+ Good+ Extension (L3) 4 Good Left Flexion (S2) 5 Normal Extension (L3) 5 Normal Ankle/Foot Strength Ankle and Foot Manual Muscle Testing Right Dorsiflexion (L4) 4+ Good+ Plantarflexion (S1) 5 Normal Left Dorsiflexion (L4) 5 Normal Plantarflexion (S1) 5 Normal PT-OP-T Assessment and Plan Start: 05/14/21 16:05 Freq: Status: Active Protocol: Document 06/10/21 10:52 AMB (Rec: 06/10/21 10:52 [facility] [id number]) Physical Therapy Assessment Goals Two Impairment ROM Short Term Goal (STG) Vitor will improve his right hip external rotation to 45 degrees. STG Duration 4 weeks Elementary Education Teacher Goal (LTG) Vitor will be able to cross his right leg over his left with 4/10 pain or less. LTG Duration 8 weeks One Impairment ADLs Short Term Goal (STG) Vitor will stand for 1 hour with hip pain of 4/10 or less. STG Duration 4 weeks Elementary Education Teacher Goal (LTG) Vitor will be able to don and doff his socks without an increase in hip pain. LTG Duration 8 weeks Assessment Summary Assessment Vitor attended 1 appointment after eval and elected to cancel his remaining appointments, he has not met goals or reduced pain, but was instructed in the beginnings of a home exercise program.
== END 2021-06-12 08:13 ==
LOC: PHYS 07:30
PROVIDERS: Family Provider Family Medicine; PCP Family Medicine; Referring Provider Family Medicine; Visit Provider Family Medicine
DX: M25.551 Pain in right hip (principal)
CPT/HCPCS: 97110; 97140; 97161

== ENCOUNTER → 2021-07-01 13:55 | Outpatient (CLI) | payer OTHER, MEDICAID, SELFPAY ==
--- NOTE | 2021-07-02 16:56 | DIAB.FU ---
Follow-up Diabetes Education Assessment Name: Vitor Garrett Date: 07/02/21 Time: 2-2:55p Dx: Type II Diabetes Vitor presents today for follow-up regarding T2DM. States he is up to 1.8mg of Victoza now. Does endorse diarrhea 2-4 x per week since increasing to this dose. Denies any changes to diet that would trigger this. BG are much improved since last visit. Unclear if he can tolerate higher dose. Reports diarrhea waking him q 15-30 min from 11pm to 4am. Encouraged him to discuss this further with provider. Since last visit, he has stopped drinking mochas, did not try monk fruit sweetener, moved dinner to 530 pm as discussed, incorporating rec'd snacks. Currently avoiding pizza, as red sauce/greasy foods have reportedly exacerbated GI distress in the past. Limited knowledge about heart healthy choices. Referral indicates elevated LDL. Sees PCP next month. Not currently taking statin. Due to having to chew foods well to avoid foods getting stuck he has to grind up his meds. States statin leaves awful taste and therefore he is not taking it. Sees eye this month Considering contacting dental due to fitting of dentures. Physical Activity: walking 1 mi BID or more. Doing PT exercises at home. Self-Monitoring Blood Glucose: Most FBG slightly above target per ADA guidelines (>130mg/dL), 5/6 elevations. Most post meal readings in goal (<180mg/dL), 2/6 elevated pc lunch and 1 of 2 elevated pc dinner. Date Pre Post Pre Post Pre Post HS 06/25 137 109 06/26 138 151 176 06/27 142 151 249 milkshake night 06/28 163 16 129 168 06/30 191 07/01 142 181 Diabetes Medications: Glipizide 5mg BID Metformin 1000 mg BID Victoza 1.8mg daily Pertinent Labs: 01/2021 HgA1c: 8.8% Cholesterol: 234H HDL: 34 L LDL: 128 H T H Past Medical History: (Last Updated 03/20/21 @ 12:18 by Christopher White MD) Closed fracture of radial head Diabetes Hx of sinus surgery Intervention: This participant was very receptive. Provided appropriate educational handouts. Discussed the following topics: Recent blood sugar results and trends GI symptoms and SE of GLP1RA Medication management Impact of exercise on FBG Heart health: fiber and saturated fat impact on lipids Statin drugs and impact on CV health Review of general nutrition recommendations and current intake Physical activity plan and impact on blood sugars Prevention of complications: foot care, dental and eye appointments, kidney and heart health, neuropathy Created SMART goals for patient self-care and success. Goals: Try monkfruit mocha- d/c Try moving dinner to 530p or add afternoon snack for better meal timing-met Snack ideas: - met fruit with nuts or apple and PB Add nuts to no sugar added fruit cocktail- new Discuss statin and diarrhea/GLP1RA with PCP- new Consider increasing walk distances- new Follow-up: [facility]ON[facility] follow-up in 6 months. Vitor would like to see PCP and follow-up in 6 months. Currently feels comfortable with his education. FBG are still elevated. Possible that with increased exercise they could improve. encouraged him to discuss further with PCP. Will re-evaluate at 6 month visit. Declined classes at this time. Deisy Rocha RDN, [facility] Certified Diabetes Care and [employer] P: [phone] Thank you for this referral
== END ==
PROVIDERS: Family Provider Family Medicine; PCP Family Medicine; Referring Provider Family Medicine; Visit Provider Family Medicine
DX: E11.9 Type 2 diabetes mellitus without complications (principal); R19.7 Diarrhea, unspecified; Z79.84 Long term (current) use of oral hypoglycemic drugs; Z71.3 Dietary counseling and surveillance
CPT/HCPCS: G0108

== ENCOUNTER → 2021-12-17 09:19 | Outpatient (CLI) | payer OTHER, MEDICAID, SELFPAY ==
--- NOTE | 2021-12-24 10:40 | DIAB.FU ---
Follow-up Diabetes Education Assessment Name: Vitor Garrett Date: 12/17/21 Time: [id number] Dx: Type II Diabetes Provider: Estee Vitor presents for follow-up today. States he has been struggling with regular diarrhea, which continues to interrupt his sleep. Attributes this to Victoza. States he may only get 4 hours of sleep as a result. Endorses only 3 formed BM in the last month. Might benefit from trying a different GLP1 RA. Reports being conscious of carb and kcal intake. Per diet recall, often choosing low carb options for meals/snacks. Diet does seem low in fiber with low carb options. Tells me today he wants to switch PCP. Discussed his feelings around this. States his insurance is a barrier to changing providers. Also interested in seeing an endo. Encouraged him to discuss this option with a PCP prn. States he had new labs done. Reports his HgA1c was in the 7% range. Has not seen a dentist. Has dentures. Anthropometrics: Wt: 217# reported Physical Activity: bikes 45 min per day. Walking 2-3 miles per report daily Self-Monitoring Blood Glucose: Reports FBG 145-150 mg/dl (above ADA goal). Pre meal often 140s and 2 hour pc 140-200mg/dl. States his neuropathy in his LE is getting worse. Diabetes Medications: Glipizide 5mg BID Metformin 1000 mg BID Victoza 1.8mg daily Pertinent Labs: Reports new hgA1c close to 7%, will ask for new labs from PCP 01/2021 HgA1c: 8.8% Cholesterol: 234H HDL: 34 L LDL: 128 H T H Past Medical History: (Last Updated 03/20/21 @ 12:18 by Christopher White MD) Closed fracture of radial head Diabetes Intervention: This participant was very receptive. Provided appropriate educational handouts. Discussed the following topics: Recent blood sugar results and trends Medication management: potential for a different GLP1RA Review of general nutrition recommendations and current intake Discussed trying some soluble fiber in diet Physical activity plan and impact on blood sugars Prevention of complications: dental appointments, neuropathy Created SMART goals for patient self-care and success. Goals: Add nuts to no sugar added fruit cocktail- d/c Discuss statin and diarrhea/GLP1RA with PCP- reports completed Consider increasing walk distances- met Try soluble fiber- new Call insurance regarding GLP1RA coverage for other options - new [facility] Vitor would like to follow-up prn. States he feels his nutrition and exercise is going well and needs to figure out his meds with his provider. Sees PCP in less than a month per report. Deisy Rocha RDN, [facility] Certified Diabetes Care and [employer] P: [phone] Thank you for this referral
== END ==
PROVIDERS: Family Provider Family Medicine; PCP Family Medicine; Referring Provider Family Medicine; Visit Provider Family Medicine
DX: E11.9 Type 2 diabetes mellitus without complications (principal); R19.7 Diarrhea, unspecified; Z79.84 Long term (current) use of oral hypoglycemic drugs; Z71.3 Dietary counseling and surveillance
CPT/HCPCS: G0108

== ENCOUNTER 2022-04-23 06:49 | Day surgery (SDC) | payer OTHER, MEDICAID, SELFPAY ==
--- NOTE | 2022-04-23 | PATH_ITS ---
[facility] Accession Number: [id number] No. of containers..03 Tissue . 01 Material submitted: . PART A: colon - CECAL POLYP PART B: colon - DESCENDING COLON POLYP PART C: rectum - RECTAL POLYP . 01 Diagnosis: A. Cecal Polyp: Tubular adenoma. Additional step sections examined. . B. Descending Colon Polyp: Colonic mucosa with prominent benign lymphoid aggregate. Negative for dysplasia or malignancy. Additional step sections examined. . C. Rectal Polyp: Colonic mucosa with focal mucosal hyperplasia. Negative for dysplasia or malignancy. Additional step sections examined. [facility] 04/29/2022 0909 Local . 01 Electronically signed: . Akil Tay MD, PhD, Pathologist NPI- [id number] . 01 Gross description: . Part A: CECAL POLYP: Received in formalin is 1 fragment(s) of mercado, soft tissue measuring 0.4 x 0.2 x 0.2 cm submitted entirely in 1 cassette(s) Part B: DESCENDING COLON POLYP: Received in formalin are 2 fragment(s) of mercado, soft tissue measuring 0.5 x 0.1 x 0.1 cm to 0.2 x 0.1 x 0.1 cm submitted entirely in 1 cassette(s) Part C: RECTAL POLYP: Received in formalin is 1 fragment(s) of mercado, soft tissue measuring 0.3 x 0.3 x 0.1 cm submitted entirely in 1 cassette(s) /CPE 04/24/2022 0744 Local . 01 Pathologist provided ICD-10: D12.0, K62.1 . 01 CPT . 150672, 409485, 503008 Specimen Comment: A courtesy copy of this report has been sent to [facility] Performed at: 01 [facility] [address], [place], [place] [id number] MD David Rao MD Phone: [phone]
[2022-04-23] MEDS: LACTATED RINGERS 1,000 ML 42 ML IV (07:13)
[2022-04-23 07:30] VITALS: BP 146/82; PULSE 99; RESP 16; TEMP 36.3; O2SAT 97; BMI 31.6
--- NOTE | 2022-04-23 07:42 | PM.HP.1 ---
History of Present Illness History of Present Illness Chief complaint: [facility] Narrative: Mr. Armendariz presents today for a screening colonoscopy. Having been sent by his primary care provider, he has no symptoms no bleeding or concerning bowel symptoms. He has no family history of colon cancer. He has never had a colonoscopy before. He said that just before this last bowel movement he did have some particulate matter in the bowel movement but the last 1 was clear. He is never had abdominal surgery and is healthy other than diabetes. Patient History Medical History (Updated 04/23/22 @ 07:43 by Dayanara Partida MD) Closed fracture of radial head Diabetes Surgical History Hx of sinus surgery Family & Social History Family History Mother Hypertension Diabetes mellitus Stroke Grandmother Heart disease Gallstones Diabetes mellitus Hypertension Father Hypertension Diabetes mellitus Social History: household members family Tobacco & Substance use: Smoking Status Current every day smoker alcohol intake never alcohol intake frequency holiday/special occasion Substance Use Type does not use Meds Home Medications and Allergies Home Medications Medication Instructions Recorded Confirmed Type atorvastatin 40 mg tablet 40 mg PO DAILY 04/23/22 04/23/22 History empagliflozin 10 mg tablet 10 mg PO DAILY 04/23/22 04/23/22 History (Jardiance) glipizide 5 mg tablet 5 mg PO BID 04/23/22 04/23/22 History liraglutide 0.6 mg/0.1 mL (18 mg/3 1.2 mg SUBCUT DAILY 04/23/22 04/23/22 History mL) subcutaneous pen injector (Victoza 2-Girish) metformin 500 mg tablet,extended 500 mg PO BID 04/23/22 04/23/22 History release 24 hr sildenafil 100 mg tablet 100 mg PO PRN PRN Sexual Activity 04/23/22 04/23/22 History Allergies Allergy/AdvReac Type Severity Reaction Status Date / Time adhesive tape AdvReac Rash Verified 04/23/22 07:25 Exam Const General: cooperative, healthy appearing and comfortable Nutritional Appearance: obese HENMT Head: normal to inspection Eyes General: appearance normal, both eyes and all related structures (Glasses) Resp Effort & Inspection: normal respiratory effort and able to speak in complete sentences Cardio Pulses: radial pulses present GI Palpation: soft and No tender Assessment & Plan Assessment and plan (1) Screening for colon cancer: Status: Acute Assessment & Plan narrative: Mr. Garrett presents today for colon cancer screening. I discussed with him risks benefits and alternatives of a screening colonoscopy. He understands these including but not limited to the risk of perforation and incomplete exam he would like to proceed. Time Spent With Patient Critical Care time: I spent a total of [] minutes of critical care time on this patient's care today; this time is exclusive of procedural time.
[2022-04-23 08:47] VITALS: BP 96/68; PULSE 95; RESP 16; TEMP 36.4; O2SAT 98
[2022-04-23 08:51] VITALS: BP 98/68; PULSE 94; RESP 14; O2SAT 95
[2022-04-23 08:56] VITALS: BP 113/77; PULSE 91; RESP 17; O2SAT 96
--- NOTE | 2022-04-23 08:56 | PM.OP.COLON ---
Operative Date/Time/Diagnoses Date of procedure: 04/23/22 Pre-op diagnosis: Colon cancer screening Post-op diagnosis: same Procedure & Clinicians Study performed: Colonoscopy and biopsy Indications: Screening average risk Surgeon: Dayanara Partida Procedure Notes Procedure in detail: Patient was taken to the endoscopy suite and placed in a left lateral decubitus position. Time-out was performed. With the help of Dr. Jose Maria Schofield conscious sedation was induced. Digital rectal exam was performed and there were no masses or strictures. The colonoscope was introduced into the anal canal and advanced through to the cecum. Some abdominal pressure and the scope stiffener was required to intubate the cecum. A photograph was taken of the appendiceal orifice. There were few scattered diverticula especially in the sigmoid colon. The withdrawal time in total was 35 minutes. One polyp was seen and biopsied completely from the cecum. There was a 2nd 1 in the descending colon. And a 3rd in the rectal area. All 3 were small and biopsied with the forceps and removed completely. The scope was then retroflexed and hemorrhoidal piles were photographsed. Patient tolerated the procedure well and went in good condition to the postoperative care unit Specimen(s): none sent (1. Cecal polyp 2. Descending colon polyp 3. Rectal polyp)
[2022-04-23 09:03] VITALS: BP 115/80; PULSE 78; RESP 16; TEMP 36.2; O2SAT 98
--- NOTE | 2022-04-23 09:12 | SUR.PHASEII ---
DC home with all belongings with . denies pain, n/v.
== END 2022-04-23 09:13 | disposition home or self-care (01) ==
PROVIDERS: Family Provider Family Medicine; PCP Family Medicine; Referring Provider Surgery; Visit Provider Surgery
PROC: 0DJD8ZZ Inspection of Lower Intestinal Tract, Via Natural or Artificial Opening Endoscopic (ICD-10-PCS; CPT 45378; principal; 2022-04-23 07:45)
DX: Z12.11 Encounter for screening for malignant neoplasm of colon (principal); K57.30 Diverticulosis of large intestine without perforation or abscess without bleeding; K64.8 Other hemorrhoids; D12.0 Benign neoplasm of cecum
CPT/HCPCS: 45380; J2704; J3010